=== PATIENT | male | born 1940 | race Caucasian/White ===

== ENCOUNTER → 2018-01-15 10:05 | Outpatient (CLI) | payer OTHER ==
[2018-01-15 10:23] LABS: HEMATOCRIT 37.3 % (42.0-54.0); HEMOGLOBIN 12.3 g/dL (13.5-17.5); MCH 31.6 pg (26.0-34.0); MCV 95.9 fL (80.0-100.0); MEAN PLATELET VOLUME 8.9 fL (7.4-10.4); PLATELET COUNT 106 10x3/uL (130-400); RBC 3.89 10x6/uL (4.20-6.10); RDW 14.7 % (11.5-14.5); WBC 18.9 10x3/uL (4.8-10.8)
[2018-01-15 12:27] LABS: EOSINOPHILS 1 % (0-7); LYMPHOCYTES 77 % (15-50); MONOCYTES 4 % (2-11); NEUTROPHILS 17 % (40-80); PLATELET ESTIMATE DECREASED; ROULEAUX OCC; SMUDGE CELLS OCC
== END | disposition home or self-care (01) ==
LOC: D.LAB 08:00
PROVIDERS: Orthopaedic Surgery
DX: C95.90 Leukemia, unspecified not having achieved remission (principal)